=== PATIENT | born 1955 | race Caucasian/White ===

== ENCOUNTER → 2024-12-02 10:07 | Outpatient (BNVA) | payer OTHER, SELFPAY | PROVIDERS: Visit Provider Specialist | DX: Z45.42 Encounter for adjustment and management of neurostimulator (principal); G25.0 Essential tremor | CPT/HCPCS: 95983; 95984; 99205 ==

== ENCOUNTER 2025-01-07 11:35 | Outpatient (CLI) | payer OTHER, SELFPAY | END 2025-01-07 11:36 | disposition home or self-care (01) | LOC: RAD 01-09 12:09 | PROVIDERS: Visit Provider Family Medicine | DX: Z45.42 Encounter for adjustment and management of neurostimulator (principal); G25.0 Essential tremor; R03.0 Elevated blood-pressure reading, without diagnosis of hypertension | CPT/HCPCS: 95983; 95984; 99214 ==

== ENCOUNTER → 2025-03-16 12:30 | Outpatient (BNVA) | payer OTHER, SELFPAY | PROVIDERS: Visit Provider Specialist | DX: Z45.42 Encounter for adjustment and management of neurostimulator (principal); G25.0 Essential tremor; R03.0 Elevated blood-pressure reading, without diagnosis of hypertension | CPT/HCPCS: 95983; 95984; 99214 ==